=== PATIENT | male | born 1940 | race Caucasian/White ===

== ENCOUNTER → 2020-08-15 | Outpatient (CLI) | payer MEDICARE, BC ==
[~2020-08-15] MED LIST: ANTI-DIARRHEAL2 MG PO; ASPIRIN E.C. 8181 MG PO; B-121000 MCG PO; BACTRIM DS 8001 TAB PO; DILANTIN 100MG100 MG PO; DITROPAN 5MG TAB5 MG PO; DULCOLAX S10 MG/SUPP RC; FERROUS SU325 MG/TAB PO; FLOMAX 0.40.4 MG/CAP PO; GLUCOPHAGE1000 MG PO; GLUCOTROL10 MG PO; HCTZ12.5TAB PO; HYTRIN 1MG C1 MG/CAP PO; JANUVIA 100MG100 MG PO; K-DUR 2020 MEQ PO; KEPPRA SUSP100 MG/ML PO; LANTUS SOLOS100 U/ML SQ; LIPITOR 80MG80 MG PO; LOPRESSOR 550 MG/TAB PO; MEVACOR40 MG PO; MOTRIN 400400 MG/TAB PO; NATURAL C500 MG PO; PEPCID 20MG TAB20 MG PO; PLAVIX 75MG TAB75 MG PO; PRILOTC; PYRIDIUM200 M1 PO; QUESTRAN4 GM/9 GM PO; TYLENOL 325MG325 MG PO; TYLENOL 500MG500 MG PO; TYLENOL PM EXTR1 TA1 PO; ULTRAM 50MG TAB50 MG PO; VASOTEC 5MG5 MG/TAB PO
== END ==
LOC: COL.RAD 10:41
DX: S72.002A Fracture of unspecified part of neck of left femur, initial encounter for closed fracture (principal)